=== PATIENT | female | born 1995 | race Caucasian/White ===

== ENCOUNTER 2020-08-29 18:52 | Emergency (ER) | payer BC, OTHER ==
[2020-08-29] MEDS ORDERED: Cyclobenzaprine 10 MG TAB ONE (20:32)
== END 2020-08-29 21:38 | disposition home or self-care (01) ==
LOC: ERS 18:52
DX: S39.012A Strain of muscle, fascia and tendon of lower back, initial encounter (principal); X50.0XXA Overexertion from strenuous movement or load, initial encounter
CPT/HCPCS: 72100